=== PATIENT | male | born 1965 | race Native Hawaiian/Other Pacific Islander ===

== ENCOUNTER 2020-04-27 10:51 | Outpatient (CLI) | payer BC, OTHER | END 2020-04-27 19:55 | disposition home or self-care (01) | LOC: INF 10:51 | PROVIDERS: ATTEND Internal Medicine | DX: Z23 Encounter for immunization (principal) | CPT/HCPCS: 96372 ==

== ENCOUNTER 2020-05-17 10:57 | Outpatient (CLI) | payer BC, OTHER | END 2020-05-17 21:13 | disposition home or self-care (01) | LOC: INF | PROVIDERS: ATTEND Internal Medicine | DX: Z23 Encounter for immunization (principal) | CPT/HCPCS: 96372 ==